=== PATIENT | male | born 1995 | race American Indian/Alaskan Native ===

== ENCOUNTER 2021-05-11 13:56 | Emergency (ER) | payer SELFPAY ==
[2021-05-11 14:04] VITALS: BP 126/76
--- NOTE | 2021-05-11 14:19 | Emergency Department Report ---
Chief Complaint: Urogenital-Male Stated Complaint: OUTBREAK IN PENIS AREA Time Seen by Provider: 05/11/21 14:17 - HPI History of Present Illness: PT'S DOG GOT FLEES 2 MONTHS AGO HE THOUGHT HIS BUMPS WERE FROM THE [facility] MED HE NOW HE HAS WEEPING WARTS ON RECTUM/PENIS AND SCROTUM NO DISCHARGE HAS SEX WITH MEN- GIVES AND RECEIVES NO HX BEING TESTED FOR HIV - ROS Review of Systems: GENITAL WARTS NO DISCHARGE NO TESTICULAR PAIN - Exam Vital Signs: Vital Signs 05/11/21 14:03 Temperature 98.5 F Pulse Rate 83 Respiratory 18 Rate Blood Pressure 126/76 [Left] O2 Sat by Pulse 99 Oximetry Physical Exam: ALERT/ORIENTED WARTS ON RECTUM/SHAFT AND SCROTUM ABD SNT S1S2 LUNGS CTA MSE screening note: Focused history and physical exam performed. Due to findings the following was ordered: NO LIFE THREAT DC WITH URO/PCP FOLLOW UP ED Disposition for MSE Clinical Impression: Genital warts due to HPV (human papillomavirus) Disposition: 01 HOME / SELF CARE / HOMELESS Is pt being admited?: No Does the pt Need Aspirin: No Condition: Stable Instructions: Human Papillomavirus, Genital Warts Additional Instructions: SEE RADHA YOU NEED THESE TO BE BURNED OFF-- AND NEED HIV/STD TESTING Referrals: WARREN MOJICA MD [Staff Physician] - 3-5 Days HARISH DE LA VEGA MD [Staff Physician] - 3-5 Days Time of Disposition: 14:18
== END 2021-05-11 15:01 | disposition home or self-care (01) ==
LOC: ED 13:56
DX: B07.9 Viral wart, unspecified (principal); Z91.013 Allergy to seafood; Z79.899 Other long term (current) drug therapy
CPT/HCPCS: 99281